=== PATIENT | male | born 1980 | race Caucasian/White ===

== ENCOUNTER 2024-07-11 18:55 | Emergency (ER) | payer OTHER, SELFPAY ==
[2024-07-11 18:58] VITALS: BP 157/99; PULSE 68; RESP 18; TEMP 36.9; O2SAT 96; BMI 34.1
--- NOTE | 2024-07-11 19:15 | ED_ITS ---
HPI - Wound/Laceration General Chief Complaint: Laceration/Wound Stated Complaint: R thumb lac Time Seen by Provider: 07/11/24 19:05 History of Present Illness HPI narrative: This 44-year-old male comes in with a laceration to his right thumb. He presented to urgent care and was sent here as he has a laceration through the nail of the thumb on the right hand. He was using a band saw on his hand got into the path of the blade. He states that he is uncertain about his tetanus status. Related Data Home Medications ?Medication ?Instructions ?Recorded ?Confirmed No Known Home Medications 07/11/24 07/11/24 Allergies Allergy/AdvReac Type Severity Reaction Status Date / Time No Known Drug Allergies Allergy Verified 07/11/24 19:04 Review of Systems Status of ROS: Reports: 10 or more systems reviewed and unremarkable except as noted in History and below Narrative: Constitutional: No fevers, no weight gain or loss. Eyes: No discharge. No vision changes. HENT: No congestion, no sore throat, no ear pain. Cardiovascular: No chest pain, no palpitations. Respiratory: No shortness of breath, no wheezes, no cough. Gastrointestinal: No abdominal pain, no vomiting, no diarrhea. Genitourinary: No dysuria, no hematuria. Musculoskeletal: Normal range of motion. Skin: No rashes, no pruritis. Neurological: No dizziness, weakness, sensory change, speech change. Endo/Heme/Allergies: No bruising or bleeding. No polydipsia. Pysch: no suicidality, no anxiety, no insomnia. All other systems reviewed and are negative. Exam Narrative: Exam Narrative: Constitutional: Well-developed, well-nourished, no acute distress. HEENT: Normocephalic, atraumatic. Neck: Normal range of motion. Nontender. Supple. Heart: Intact distal pulses. Lungs: No chest discomfort. No wheezes, rhonchi, or rales. Abdomen: Nontender. Back: Normal range of motion. Extremities: Normal range of motion. The right thumbnail has a linear laceration across the midportion of the nail. There is no active bleeding. The nail is otherwise in rather good position. Skin: Intact. No rash. Warm. No erythema or pallor. Neurologic: No altered sensation. No weakness. Alert and oriented. Psychiatric: No suicidality. No anxiety or depression. No insomnia. Nursing notes and vitals signs are reviewed. Const: Vital Signs, click to edit/add: Vital Signs - 24 hr 07/11/24 18:58 Temperature 98.5 F Pulse Rate [Right Pulse Oximeter] 68 Respiratory Rate 18 Blood Pressure [Ri ght Upper Arm] 157/99 H Pulse Oximetry 96 Oxygen Delivery Me thod Room Air Course Vital Signs Vital signs: Initial Vital Signs Temperature 98.5 F 07/11/24 18:58 Temperature Source Temporal Artery Scan 07/11/24 18:58 Pulse Rate 68 07/11/24 18:58 Pulse Rhythm Regular 07/11/24 18:58 Respiratory Rate 18 07/11/24 18:58 Blood Pressure 157/99 H 07/11/24 18:58 Blood Pressure Mean 118 H 07/11/24 18:58 Blood Pressure Position Sitting 07/11/24 18:58 Pulse Oximetry 96 07/11/24 18:58 Oxygen Delivery Method Room Air 07/11/24 18:58 Vital Signs Temperature 98.5 F 07/11/24 18:58 Pulse Rate 68 07/11/24 18:58 Respiratory Rate 18 07/11/24 18:58 Blood Pressure 157/99 H 07/11/24 18:58 Pulse Oximetry 96 07/11/24 18:58 Oxygen Delivery Method Room Air 07/11/24 18:58 Temperature 98.5 F 07/11/24 18:58 Pulse Rate 68 07/11/24 18:58 Respiratory Rate 18 07/11/24 18:58 Blood Pressure 157/99 H 07/11/24 18:58 Pulse Oximetry 96 07/11/24 18:58 Oxygen Delivery Method Room Air 07/11/24 18:58 MDM - Wound/Laceration MDM Narrative Medical decision making narrative: This patient has a laceration through the nail of the right thumb. The distal portion of the nail is intact and functional. There is no active bleeding. The wound was cleansed and I advised the patient regarding repair stating that is best to let this heal on its own. There is no benefit in attempting to remove the nail as the most of it is intact with the nail bed. The patient did receive a tetanus vaccination. The wound was cleansed and bandaged and instructions were given regarding wound care. Discharge Plan Discharge Clinical Impression: Laceration Patient Disposition: Home, Self-Care Condition: Stable Additional Instructions: Keep wound clean and dry. Use [id number] medicines as needed and directed. Follow up with MD return if worsening. Prescriptions: No Action No Known Home Medications Follow Up/Referrals: Provider,Not a Local [Primary Care Provider] - Stand Alone Forms: [employer] Info Instructions
[2024-07-11] MEDS: TETANUS/DIPHTH/PERTUSSIS 0.5 ML SYRINGE IM (19:19)
== END 2024-07-11 19:35 | disposition home or self-care (01) ==
PROVIDERS: Emergency Provider Emergency Medicine Emergency Medical Services
DX: S61.111A Laceration without foreign body of right thumb with damage to nail, initial encounter (principal); W31.2XXA Contact with powered woodworking and forming machines, initial encounter
CPT/HCPCS: 90471; 90715; 99283; 99284

== ENCOUNTER 2025-04-27 14:20 | Outpatient (RCR) | payer OTHER, SELFPAY | END 2025-08-25 23:59 | disposition home or self-care (01) | PROVIDERS: Visit Provider Podiatrist | DX: M76.61 Achilles tendinitis, right leg (principal); M76.62 Achilles tendinitis, left leg; M92.61 Juvenile osteochondrosis of tarsus, right ankle; M92.62 Juvenile osteochondrosis of tarsus, left ankle; M21.6X1 Other acquired deformities of right foot; M21.6X2 Other acquired deformities of left foot; Z51.89 Encounter for other specified aftercare | CPT/HCPCS: 97110; 97162 ==